=== PATIENT | female | born 1980 | race African-American/Black ===

== ENCOUNTER 2020-08-16 12:46 | Emergency (ER) | payer SELFPAY ==
[~2020-08-16] VITALS: Ht 160 cm; Wt 61.4 kg
[~2020-08-16 12:46] MED LIST: NAPR-695 PO
[2020-08-16 13:45] VITALS: BP 105/64
--- NOTE | 2020-08-16 15:19 | PHYS DOC ---
Past Medical History Past Medical History: No Pertinent History Past Surgical History: Tubal ligation, Other Additional Past Surgical Histo: D&C Smoking Status: Current Every Day Smoker Alcohol Use: Occasionally Drug Use: Marijuana Adult General Chief Complaint Chief Complaint: SORE THROAT HPI HPI Patient is a 39 year old female who denies any significant past history presented emergency department for new onset of sore throat. Patient states that over the last 3 days she developed worsening sensation of sore throat with mild intermittent nonproductive cough denies any fever or chills. States that she is concerned because she noted swelling in the right anterior neck which started 2 days ago and resolved. Denies any nausea, vomiting, chest pain or dizziness Review of Systems Review of Systems Constitutional: Denies fever or chills [] Eyes: Denies change in visual acuity, redness, or eye pain [] HENT: Denies nasal congestion or sore throat [] Respiratory: Denies cough or shortness of breath [] Cardiovascular: No additional information not addressed in HPI [] GI: Denies abdominal pain, nausea, vomiting, bloody stools or diarrhea [] : Denies dysuria or hematuria [] Musculoskeletal: Denies back pain or joint pain [] Integument: Denies rash or skin lesions [] Neurologic: Denies headache, focal weakness or sensory changes [] Endocrine: Denies polyuria or polydipsia [] All other systems were reviewed and found to be within normal limits, except as documented in this note. Allergies Allergies Allergies Coded Allergies Type Severity Reaction Last Updated Verified latex Allergy Intermediate 08/16/20 Yes Physical Exam Physical Exam Constitutional: Well developed, well nourished, no acute distress, non-toxic appearance. [] HENT: Normocephalic, atraumatic, bilateral external ears normal, oropharynx moist, no oral exudates, nose normal. [] Eyes: PERRLA, EOMI, conjunctiva normal, no discharge. [] Neck: Normal range of motion, no tenderness, supple, no stridor. Very mild left anterior cervical adenopathy Cardiovascular:Heart rate regular rhythm, no murmur [] Lungs & Thorax: Bilateral breath sounds clear to auscultation [] Abdomen: Bowel sounds normal, soft, no tenderness, no masses, no pulsatile masses. [] Skin: Warm, dry, no erythema, no rash. [] Back: No tenderness, no CVA tenderness. [] Extremities: No tenderness, no cyanosis, no clubbing, ROM intact, no edema. [] Neurologic: Alert and oriented X 3, normal motor function, normal sensory function, no focal deficits noted. [] Psychologic: Affect normal, judgement normal, mood normal. [] Current Patient Data Vital Signs Vital Signs Date Time Temp Pulse Resp B/P (MAP) Pulse Ox O2 Delivery O2 Flow Rate FiO2 08/16/20 13:45 98.2 86 20 105/64 (78) 99 Room Air 98.2 Lab Values Laboratory Tests Test 08/16/20 14:27 POC Urine HCG, Qualitative Hcg negative (Negative) EKG EKG [] Radiology/Procedures Radiology/Procedures [] Course & Med Decision Making Course & Med Decision Making Pertinent Labs and Imaging studies reviewed. (See chart for details) 39F presented emergency department for new onset sore throat. Only 1-5 Centor criteria. Will obtain rapid strep and if negative will discharge home with rou erik care for viral syndrome. Dragon Disclaimer Dragon Disclaimer This electronic medical record was generated, in whole or in part, using a voice recognition dictation system. Departure Departure Impression: Primary Impression: Viral syndrome Disposition: HOME / SELF CARE / HOMELESS Condition: GOOD Referrals: ED KARIMI MD Patient Instructions: Viral Syndrome Additional Instructions: EMERGENCY DEPARTMENT GENERAL DISCHARGE INSTRUCTIONS Thank you for coming to [facility] Emergency Department (ED) today and trusting us with you care. We trust that you had a positive experience in our Emergency Department. If you wish to speak to the department management, you may call the Director at [phone]. YOUR FOLLOW UP INSTRUCTIONS ARE FOLLOWS: 1. Do you have a private Doctor? If you do not have a private doctor, please ask for a resource list of physicians or clinics that may be able to assist you with follow up care. 2. The Emergency Physicain has interpreted your x-rays. The X-Ray specialist will also review them. If there is a change in the findings, you will be notified in 48 hours when at all possible. 3. A lab test or culture has been done, your results will be reviewed and you will be notified if you need a change in treatment. ADDITIONAL INSTRUCTIONS AND INFORMATION: 1. Your care today has been supervised by a physician who is specially trained in emergency care. Many problems require more than one evaluation for a complete diagnosis and treatment. We recommend that you schedule your follow up appointment as recommended to ensure complete treatment of you illness or injury. If you are unable to obtain follow up care and continue to have a problem, or if your condition worsens, we recommend that you return to the ED. 2. We are not able to safely determine your condition over the phone nor are we able to give sound medical advice over the phone. For these safety reasons, if you call for medical advice we will ask you to come to the ED for further evaluation. 3. If you have any questions regarding these discharge instructions please call the ED at [phone]. SAFETY INFORMATION: In the interest of safety, wellness, and injury prevention; we encourage you to wear your sealbelt, if you smoke; quite smoking, and we encourage family to use a protective helmet for bicycling and other sporting events that present an increased risk for head injury. IF YOUR SYMPTOMS WORSEN OR NEW SYMPTOMS DEVELOP, OR YOU HAVE CONCERNS ABOUT YOUR CONDITION; OR IF YOUR CONDITION WORSENS WHILE YOU ARE WAITING FOR YOUR FOLLOW UP APPOINTMENT; EITHER CONTACT YOUR PRIMARY CARE DOCTOR, THE PHYSICIAN WHOSE NAME AND NUMBER YOU WERE GIVEN, OR RETURN TO THE ED IMMEDIATELY. JAMES SALMERON MD Aug 16, 2020 15:18
== END 2020-08-16 15:35 | disposition home or self-care (01) ==
LOC: ER 12:46
DX: B34.9 Viral infection, unspecified (principal); J02.9 Acute pharyngitis, unspecified; R20.2 Paresthesia of skin; R60.0 Localized edema; F17.200 Nicotine dependence, unspecified, uncomplicated; F12.90 Cannabis use, unspecified, uncomplicated; Z98.51 Tubal ligation status; Z98.890 Other specified postprocedural states; Z91.040 Latex allergy status
CPT/HCPCS: 81025; 87070; 87880; 99283

== ENCOUNTER 2021-06-30 15:35 | Emergency (ER) | payer MEDICAID ==
[~2021-06-30] VITALS: Ht 160 cm; Wt 63.6 kg
[2021-06-30 15:40] VITALS: BP 176/80
--- NOTE | 2021-06-30 16:08 | PHYS DOC ---
Past Medical History Past Medical History: No Pertinent History Past Surgical History: Tubal ligation, Other Additional Past Surgical Histo: D&C Smoking Status: Current Every Day Smoker Alcohol Use: None Drug Use: Marijuana General Adult EDM: Chief Complaint: MULTIPLE COMPLAINTS HPI: HPI: Patient is a 40 year old female who presents with began having a panic attack with numbness and tingling that went from her left elbow down into her fingers. She states "I feel like I am having a heart attack ". 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 This happened when she is at work. She states she gets small panic attacks every other day. She does have a psychiatrist and [employer] doctor. She states that she is supposed to take Ativan at home as needed for panic attack or anxiety but she does not like to take pills so she has not taken them in a long time. She states she just tries to get through it on her own. S he states she also stopped taking her Latuda. She states that she stopped taking her medications because she was feeling better. Patient has a history of anxiety and panic attacks. She denies suicidal ideation, hallucinations, homicidal ideation, fever, abdominal pain, nausea, vomiting, diarrhea, headache, dizziness, focal weakness. Review of Systems: Review of Systems: Constitutional: Denies fever or chills. [] Eyes: Denies change in visual acuity. [] HENT: Denies nasal congestion or sore throat. [] Respiratory: Denies cough or shortness of breath. [] Cardiovascular: Denies chest pain or edema. [] GI: Denies abdominal pain, nausea, vomiting, bloody stools or diarrhea. [] : Denies dysuria. [] Musculoskeletal: Denies back pain or joint pain. [] Integument: Denies rash. [] Neurologic: Denies headache, focal weakness or sensory changes. [] Endocrine: Denies polyuria or polydipsia. [] Lymphatic: Denies swollen glands. [] Psychiatric: Denies depression or anxiety. [] Heart Score: C/O Chest Pain: Yes (pressure) HEART Score for Chest Pain: HEART Score for Chest Pain Response (Comments) Value History Slighlty/Non-Suspicious 0 ECG Normal 0 Age < 45 0 Risk Factors 1 or 2 Risk Factors 1 Troponin < Normal Limit 0 Total 1 Risk Factors: Risk Factors: DM, Current or recent (<one month) smoker, HTN, HLP, family history of CAD, obesity. Risk Scores: Score 0 - 3: 2.5% MACE over next 6 weeks - Discharge Home Score 4 - 6: 20.3% MACE over next 6 weeks - Admit for Clinical Observation Score 7 - 10: 72.7% MACE over next 6 weeks - Early Invasive Strategies Allergies: Allergies: Allergies Coded Allergies Type Severity Reaction Last Updated Verified latex Allergy Intermediate 06/30/21 Yes Physical Exam: PE: Constitutional: Well developed, well nourished, no acute distress, non-toxic appearance. [] HENT: Normocephalic, atraumatic, bilateral external ears normal, oropharynx moist, no oral exudates, nose normal. [] Eyes: PERRLA, EOMI, conjunctiva normal, no discharge. [] Neck: Normal range of motion, no tenderness, supple, no stridor. [] Cardiovascular:Heart rate regular rhythm, no murmur [] Lungs & Thorax: Bilateral breath sounds clear to auscultation [] Abdomen: Bowel sounds normal, soft, no tenderness, no masses, no pulsatile masses. [] Skin: Warm, dry, no erythema, no rash. [] Back: No tenderness, no CVA tenderness. [] Extremities: No tenderness, no cyanosis, no clubbing, ROM intact, no edema. [] Neurologic: Alert and oriented X 3, normal motor function, normal sensory function, no focal deficits noted. [] Psychologic: Affect normal, judgement normal, mood normal. [] Current Patient Data: Vital Signs: Vital Signs Date Time Temp Pulse Resp B/P (MAP) Pulse Ox O2 Delivery O2 Flow Rate FiO2 06/30/21 15:40 98.5 100 18 176/80 (112) 100 Room Air 98.5 EKG: EK and read by Dr. Yee as a sinus tachycardia rhythm and no STEMI Radiology/Procedures: Radiology/Procedures: [] Impression: [facility] [address] [place] [address] IMAGING REPORT Signed PATIENT: TYREE ALEMAN RACCOUNT: [id number] : 1980 LOCATION: ER AGE: 40 SEX: F EXAM STATUS: REG ER ORD. PHYSICIAN: DIVINE VALDES APRN REASON: soa, pain PROCEDURE: PORTABLE CHEST 1V Exam Date: 06/30/2021 4:59 PM XR CHEST 1V Indication: Reason: soa, pain / Spl. Instructions: / History: . FINDINGS/ IMPRESSION: The cardiac silhouette and pulmonary vasculature are within normal limits. There is no focal consolidation, pleural effusion or pneumothorax. The visualized osseous structures are intact. Electronically signed by: Dayanna Moore MD (06/30/2021 5:02 PM) [id number] DICTATED and SIGNED BY: DAYANNA MOORE MD DATE: 06/30/21 [id number] Course & Med Decision Making: Course & Med Decision Making Pertinent Labs and Imaging studies reviewed. (See chart for details) See HPI. Alert and oriented x4. Ambulatory steady gait. Skin pink warm and dry. Speaks in full clear sentences. Vital signs are within normal limits. Very anxious. Patient states she obsesses over taking her pulse often and watching her blood pressure. She states that she can follow-up with her ps ychiatrist. Patient educated that she felt better because she was on the medication but it did not cure her. Therefore by stopping the medication the symptoms come back. Patient does agree to follow-up with her psychiatrist as soon as possible. EKG shows a sinus tachycardia at 107 but no STEMI. Is given 1 mg of Ativan as this is what she was prescribed to take for her anxiety or panic attacks at home as needed. Lab work is unremarkable. Chest x- ray is normal. Patient is can follow-up with her psychiatrist soon as possible. [] Efraín Disclaimer: Efraín Disclaimer: This electronic medical record was generated, in whole or in part, using a voice recognition dictation system. Departure Departure Impression: Primary Impression: Panic attack Disposition: 01 HOME / SELF CARE / HOMELESS Condition: STABLE Referrals: NO PCP (PCP) Patient Instructions: Anxiety and Panic Attacks Additional Instructions: Follow-up with your psychiatrist as soon as possible. Begin taking your medications as they are prescribed for you. Drink plenty of fluids to stay hydrated. I would stop drinking anything with caffeine as this can worsen panic attacks and anxiety. DIVINE VALDES APRN Jun 30, 2021 16:08
--- NOTE | 2021-06-30 16:12 | EKG ---
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
[2021-06-30 16:28] LABS: CLARITY,URINE CLEAR; COLOR,URINE YELLOW
[2021-06-30 16:29] LABS: BILIRUBIN,URINE NEGATIVE (NEG); NITRITE,URINE NEGATIVE (NEG); PH,URINE 8.5 (<5.0-8.0); PROTEIN,URINE NEGATIVE (NEG-TRACE)
[2021-06-30 16:30] LABS: WBC,URINE 0 /HPF (0-4)
[2021-06-30 16:31] LABS: BACTERIA,URINE 0 /HPF (0-FEW)
[2021-06-30 16:51] LABS: BASO % 1 % (0-3); EOS # 0.1 x10^3/uL (0.0-0.7); EOS % 1 % (0-3); HEMATOCRIT 40.8 % (36.0-47.0); HEMOGLOBIN 13.6 g/dL (12.0-15.5); LYMPH # 1.7 x10^3/uL (1.0-4.8); LYMPH % 25 % (24-48); MEAN CORPUSCULAR HEMOGLOBIN 33 pg (25-35); MEAN CORPUSCULAR HGB CONC 33 g/dL (31-37); MEAN CORPUSCULAR VOLUME 98 fL (79-100); MONO # 0.8 x10^3/uL (0.0-1.1); MONO % 12 % (0-9); NEUT # 4.2 x10^3/uL (1.8-7.7); NEUT % 62 % (31-73); PLATELET COUNT 365 x10^3/uL (140-400); RED BLOOD COUNT 4.14 x10^6/uL (3.50-5.40); RED CELL DISTRIBUTION WIDTH 13.8 % (11.5-14.5); WHITE BLOOD COUNT 6.8 x10^3/uL (4.0-11.0)
[2021-06-30 17:00] LABS: CALCIUM 8.9 mg/dL (8.5-10.1); CREATININE 0.7 mg/dL (0.6-1.0); GFR 112.1; POTASSIUM 3.8 mmol/L (3.5-5.1)
--- NOTE | 2021-06-30 17:05 | RAD ---
Exam Date: 06/30/2021 4:59 PM XR CHEST 1V Indication: Reason: soa, pain / Spl. Instructions: / History: . FINDINGS/ IMPRESSION: The cardiac silhouette and pulmonary vasculature are within normal limits. There is no focal consolidation, pleural effusion or pneumothorax. The visualized osseous structures are intact. Electronically signed by: Raudel Moore MD (06/30/2021 5:02 PM) [id number]
[2021-06-30 17:06] LABS: ALBUMIN 4.1 g/dL (3.4-5.0); ALBUMIN/GLOBULIN RATIO 1.2 (1.0-1.7); TOTAL BILIRUBIN 0.2 mg/dL (0.2-1.0); TOTAL PROTEIN 7.6 g/dL (6.4-8.2)
== END 2021-06-30 17:29 | disposition home or self-care (01) ==
LOC: ER 15:35
DX: F41.0 Panic disorder [episodic paroxysmal anxiety] (principal); R20.0 Anesthesia of skin; F17.200 Nicotine dependence, unspecified, uncomplicated; Z91.040 Latex allergy status
CPT/HCPCS: 36415; 71045; 80053; 81001; 81025; 84484; 85025; 93005; 99285-25